=== PATIENT | female | born 1975 | race Caucasian/White ===

== ENCOUNTER 2021-09-30 04:03 | Observation (INO) ==
[2021-09-30] MEDS ORDERED: PANTOPRAZOLE 40 MG VIAL IV STA (04:31)
[2021-09-30] MEDS ORDERED: ONDANSETRON 4 MG/2 ML VIAL IV STA (04:31)
[2021-09-30] MEDS ORDERED: SODIUM CHLORIDE 0.9% 1,000 ML IV STA (04:31)
[2021-09-30] MEDS ORDERED: HYDROmorphone 1 MG/1 ML SYRINGE IV STA (04:31)
[2021-09-30 05:27] LABS: Basophils % 0.2 % (0.0-0.8); Eosinophils # 0.1 10*3/uL (0.0-0.87); Eosinophils % 0.5 % (0.00-10.9); Hematocrit 49.5 VOL% (35.7-47.0); Hemoglobin 15.8 GM/DL (12.0-16.0); Immature Granulocytes % 0.4 %; Immature Granulocytes Absolute 0.05 #; Lymphocytes # 1.1 10*3/uL (1.4-4.0); Lymphocytes % 8.9 % (21.3-54.2); Mean Corpuscular HGB Conc 31.9 GM/DL (32-36); Monocytes # 0.7 10*3/uL (0.11-0.8); Monocytes % 5.7 % (1.7-12.7); Neutrophils % 84.3 % (38.7-73.9); Platelet Count 250 T/CUMM (130-400); Red Blood Count 5.89 MC/CUMM (3.8-5.5); Red Cell Distribution Width 14.1 % (9.3-17.3); White Blood Count 12.2 T/CUMM (4-12)
[2021-09-30 05:44] LABS: Alanine Aminotransferase 30 U/L (13-56); Albumin 4.3 G/DL (3.4-5.0); Alkaline Phosphatase 103 U/L (45-117); Amylase 58 U/L (25-115); Aspartate Amino Transferase 23 U/L (0-37); Blood Urea Nitrogen 18 MG/DL (7-18); Carbon Dioxide 22 MMOL/L (21-32); Chloride 106 MMOL/L (98-107); Glucose 166 MG/DL (74-106); Osmolality,Calculated 278.8 MOS/KG (273-304); Potassium 4.1 MMOL/L (3.5-5.1); Sodium 137 MMOL/L (136-145); Total Protein 7.8 G/DL (6.4-8.2)
[2021-09-30] MEDS ORDERED: DEXTROSE 10% 250 ML BAG IV PRN (06:27)
[2021-09-30] MEDS ORDERED: HYDROmorphone 1 MG/1 ML SYRINGE IV PRN (06:27)
[2021-09-30] MEDS ORDERED: hydrALAZINE 20 MG/1 ML VIAL IV PRN (06:27)
[2021-09-30] MEDS ORDERED: GLUCAGON 1 MG VIAL IM PRN (06:27)
[2021-09-30] MEDS: SODIUM CHLORIDE 0.9% 1,000 ML IV SCH ×3 (07:00→23:18)
[2021-09-30] MEDS: metroNIDAZOLE INJ 500 MG/100 ML PREMIX IV SCH ×3 (07:51→23:16)
[2021-09-30] MEDS: ONDANSETRON 4 MG/2 ML VIAL IV PRN ×2 (07:51→14:50)
[2021-09-30] MEDS: INSULIN LISPRO 100 UNIT/ML SUBCUT SCH ×4 (07:52→22:29)
[2021-09-30] MEDS: LEVOFLOXACIN INJ 750 MG/150 ML PREMIX IV SCH (08:59)
[2021-09-30] MEDS: PANTOPRAZOLE 40 MG VIAL IV SCH ×2 (09:00→20:45)
[2021-09-30] MEDS: PROPRANOLOL 40 MG TABLET PO SCH ×2 (09:02→20:42)
[2021-09-30 14:04] LABS: Bilirubin,Urine Negative (Negative); Blood, Urine Negative (Negative); Glucose,Urine (UA) Negative (Negative); Ketones,Urine Negative (Negative); Nitrite,Urine Negative (Negative); Protein,Urine Negative (Negative); Urine Appearance Clear (Clear); Urine Color Yellow (Yellow); Urine Specific Gravity >= 1.030 (1.001-1.035); Urine Urobilinogen 0.2 eU/dL (<2.0); Urine pH 5.5 (4.5-8.0)
[2021-09-30 14:18] LABS: Mucus,Urine Occasional /LPF (Occasional); RBC,Urine 2 /HPF (0-4); Squamous Epithelial Cell,Urine Occasional /HPF (0-10)
[2021-09-30] MEDS ORDERED: lisinopriL 20 MG TABLET PO SCH (21:00)
[2021-09-30] MEDS ORDERED: SERTRALINE 50 MG TABLET PO SCH (21:00)
[2021-10-01 05:16] LABS: Eosinophils # 0.2 10*3/uL (0.0-0.87); Eosinophils % 3.6 % (0.00-10.9); Hematocrit 33.7 VOL% (35.7-47.0); Hemoglobin 10.7 GM/DL (12.0-16.0); Immature Granulocytes % 0.2 %; Immature Granulocytes Absolute 0.01 #; Lymphocytes # 1.2 10*3/uL (1.4-4.0); Lymphocytes % 29.7 % (21.3-54.2); Mean Corpuscular HGB Conc 31.8 GM/DL (32-36); Monocytes # 0.2 10*3/uL (0.11-0.8); Monocytes % 5.4 % (1.7-12.7); Neutrophils % 61.1 % (38.7-73.9); Platelet Count 182 T/CUMM (130-400); Red Blood Count 4.01 MC/CUMM (3.8-5.5); Red Cell Distribution Width 14.3 % (9.3-17.3); White Blood Count 4.1 T/CUMM (4-12)
[2021-10-01 05:29] LABS: Calcium 7.6 MG/DL (8.5-10.1); Osmolality,Calculated 282.1 MOS/KG (273-304); Potassium 3.5 MMOL/L (3.5-5.1)
[2021-10-01] MEDS: PROPRANOLOL 40 MG TABLET PO SCH (11:38)
[2021-10-01] MEDS: metroNIDAZOLE INJ 500 MG/100 ML PREMIX IV SCH (11:38)
[2021-10-01] MEDS: PANTOPRAZOLE 40 MG VIAL IV SCH (11:40)
[2021-10-01] MEDS: INSULIN LISPRO 100 UNIT/ML SUBCUT SCH ×2 (12:24→17:42)
[2021-10-01] MEDS: LEVOFLOXACIN INJ 750 MG/150 ML PREMIX IV SCH (13:57)
[2021-10-01 16:47] VITALS: BP 158/85
== END 2021-10-01 17:59 | disposition home or self-care (01) ==
LOC: N.ED 04:03 → N.EDINP 04:03 → N.5E 11:09
PROVIDERS: ADMIT Internal Medicine; ATTEND Internal Medicine